=== PATIENT | male | born 1985 | race Caucasian/White ===

== ENCOUNTER 2017-03-25 17:37 | Emergency (ER) | payer SELFPAY ==
[~2017-03-25] VITALS: Ht 180.3 cm; Wt 93.7 kg
[~2017-03-25 17:37] MED LIST: NO ROUTINE MEDS
--- OUTSIDE RECORDS SUMMARY | 2017-03-25 17:41 | XMS REPORT | Continuity of Care Document ---
Author Author [facility] Organization [facility] Address Unknown Phone Unavailable Allergies Active Description Code Type Severity Reaction Onset Reported/Identified Relationship to Patient Clinical Status Yes No Known Allergies No Known Allergies Drug Allergy Unknown N/A 02/15/2016 Medications Problems Procedures Results Encounters ACCT No. Visit Date/Time Discharge Status Pt. Type Provider Facility Loc./Unit Complaint [id number] 02/15/2016 18:36:00 2015 21:34:00 DIS Emergency Pardeep MARTIN, Loida Lara [facility]
[2017-03-25 17:48] VITALS: Ht 180.3 cm; Wt 93.7 kg
[2017-03-25] MEDS ORDERED: IBUP-1724 PO (17:55)
[2017-03-25] MEDS ORDERED: ASPI1TAB7 PO (17:55)
--- OUTSIDE RECORDS SUMMARY | 2017-03-25 18:07 | XMS REPORT | Continuity of Care Document ---
Author Author Organization Address Unknown Phone Unavailable Allergies Active Description Code Type Severity Reaction Onset Reported/Identified Relationship to Patient Clinical Status Yes No Known Allergies No Known Allergies Drug Allergy Unknown N/A 02/15/2016 Medications Problems Procedures Results Encounters ACCT No. Visit Date/Time Discharge Status Pt. Type Provider Facility Loc./Unit Complaint [id number] 02/15/2016 18:36:00 2015 21:34:00 DIS Emergency Pardeep MARTIN, Loida Lara [facility]
--- NOTE | 2017-03-25 18:15 | ERPDOC ---
Departure Disposition Decision Date: March 25, 2017 Disposition Decision Time: 18:21 Disposition: 01 DISCHARGED HOME, SELF-CARE Impression Impression Impression: Primary Impression: Pain, dental Severity: Mild Condition: Stable Seen By: Mid-level only Patient Instructions: ED Dental Follow-up, Toothache (ED) Problems/Meds/Labs Reviewed?: Yes Medications reviewed and manag: Yes Additional Instructions: Take 800 mg of ibuprofen every 8 hours with food for pain. Take amoxicillin 500 mg 3 times daily for 10 days May try [id number] Anbesol for dental pain. You may take [place] 5/325 1-2 tabs every 6 hours as needed for pain. Follow with a dentist of your choice in the next week. Follow treatment plan. Follow up care ordered?: Yes Mental Status: Alert, Oriented Scripts Hydrocodone/Acetaminophen ([place] 5-325 Tablet) 5-325 Tablet 1-2 TAB PO Q6HPRN, #15 TAB Prov: PHIL BLACKMON APRN 03/25/17 Amoxicillin (Amoxicillin) 500 Mg Capsule 1 CAP PO TID for 10 Days, #30 CAP Prov: PHIL BLACKMON APRN 03/25/17 HPI General Chief Complaint: Toothache Stated Complaint: RT JAW PAIN Time Seen by Provider: 18:01 Source: patient HPI Dental Initial Comments 31 YO M presents to ED with report of right lower molar pain that started during the night. Pain radiates to his upper jaw. Denies fever, chills, sensitivity to hot or cold. Hx. of poor dentition. Has been taking Excedrin migraine without relieve of pain. Pain Scale: Now: 8/10 Location: R lower Problem: other (carries) Associated Symptoms: DENIES: cheek swelling, facial swelling, fever, rhinorrhea , sinus pain Allergies: Coded Allergies: No Known Allergies (Unverified , 03/25/17) Past History Past Medical History Metabolic: DENIES: diabetes ENMT: dental problems Respiratory: DENIES: asthma GI: DENIES: ulcers Male: DENIES: renal insufficiency Neurological: DENIES: seizures Musculoskeletal: DENIES: rheumatoid arthritis Psychological: drug abuse Surgical History Denies Surgeries Family History Family PMH: FOUND: CVA, [place], hypertension Vaccines Hx Influenza Vaccination: No Social History # of Packs/Tins per Day: 0.5 Sexuality: female partner Review of Systems Constitutional Constitutional: DENIES: chills, dizziness, fever, weakness Eyes General: DENIES: erythema, exudate Lids/Accessories: DENIES: erythema, swelling ENMT Ears: DENIES: pain Sinuses: DENIES: congestion, rhinorrhea Mouth/Throat: DENIES: sore throat Teeth: chipped/cracked tooth, missing teeth, pain Cardiovascular Cardiac: DENIES: chest pain, murmur Rhythm/Rate: DENIES: palpitations Pulmonary Respiratory: DENIES: cough, dyspnea GI Upper Abdomen: DENIES: nausea, pain, vomiting Lower Abdomen: DENIES: blood in stool, diarrhea, pain General: DENIES: dysuria, pain Musculoskeletal General: DENIES: joint pain, pain, tenderness Integumentary Skin: DENIES: color change, itching, rash Neurological General: DENIES: ataxia, change in strength, numbness, paralysis/paresis, weakness Psychiatric Psychiatric: DENIES: anxiety, depression, nervousness Exam General General Nourishment: well nourished, well developed General Body Habitus: well groomed Vital Signs: Temperature: 97.0, Source: Oral, Heart Rate: 97, Respiratory Rate : 16, BP: 145/97, Pulse Oximetry: 97 Height (Feet): 5 Height (Inches): 11.00 [place] Dental Face: NOT FOUND: asymmetry, bruising, erythema, numbness, swelling, tender, weakness Jaw: NOT FOUND: asymmetry, trismus Lips: NOT FOUDN: swelling Gums: moist, pink, NOT FOUND: other (abscess), swelling Teeth: caries (multiple), missing (multiple), other (pain #30) Pharynx: NOT FOUND: cobblestoning, erythema, exudate, lateral pillar signs, swelling, uvular deviation Neck: NOT FOUND: L anterior adenopathy, L posterior adenopathy, R anterior adenopathy, R posterior adenopathy, shotty nodes Eyes (brief) Eyes Brief: found: EOMI ENMT (brief) ENMT: NOT FOUND: nasal exudate, nasal swelling, pharnyx erythema Respiratory (brief) Respiratory Brief: FOUND: clear all [place], equal bilaterally, symmetrical Cardiovascular (brief) Cardiac Brief: FOUND: regular rate, regular rhythm Musculoskeletal (brief) Musculoskeletal Brief: NOT FOUND: deformity, loss of motion Integumentary (brief) Integumentary Brief: FOUND: dry, pink, warm Neurologic (brief) Neurological Brief: FOUND: motor-no gross deficits, sensory-no gross deficits Neurologic RN Documented GCS Eye Opening: Verbal: Motor: Total: Psychiatric (brief) Psychiatric Brief: FOUND: alert Differential Diagnoses Considering: Gingival Abscess, Caries, Gingivitis, Tooth Avulsion/Extrusion, Tooth Fracture Progress Progress Progress Patient verbalized understanding of treatment plan, follow up with dentist/PCP and return precautions. PHIL BLACKMON APRN March 25, 2017 18:15
[2017-03-25] MEDS ORDERED: HYDR-4246 PO (18:26)
[2017-03-25] MEDS ORDERED: AMOX500C2 PO (18:26)
--- NOTE | 2017-03-25 18:32 | NUR ---
REPORT RECIEVED REPORT FROM EUSEBIO MENDOZA
[2017-03-25 18:35] VITALS: BP 146/96; PULSE 80; RESP 18; TEMP 98.4; O2SAT 99
--- NOTE | 2017-03-25 18:35 | NUR ---
DEPART PT IS GIVEN DISMISSAL INSTRUCTIONS WITH VERBAL UNDERSTANDING. PT IS GIVEN SCRIPTS. PT LEAVES AMBULATORY TO ED REGISTRATION DESK
== END 2017-03-25 18:35 | disposition home or self-care (01) ==
LOC: ED 17:37
DX: K08.89 Other specified disorders of teeth and supporting structures (principal); R68.84 Jaw pain